=== PATIENT | male | born 1985 | race Caucasian/White ===

== ENCOUNTER 2018-08-07 07:52 | Emergency (ER) | payer SELFPAY ==
--- NOTE | 2018-08-07 08:04 | EDPHY ---
H & P Stated Complaint: l sided abd pain/nausea Time Seen by Provider: 08/07/18 08:03 HPI/ROS: CHIEF COMPLAINT: Abdominal pain, nausea HISTORY OF PRESENT ILLNESS: The patient presents to the ED with abrupt onset left mid abdominal pain and back pain that began earlier this morning. The patient reports that he cannot get comfortable. The patient reports associated nausea. The patient denies prior history of kidney stones. The patient does have a prior history of appendectomy and hernia repair. The patient denies any hematuria, dysuria, hematemesis or melena. REVIEW OF SYSTEMS: A comprehensive 10 point review of systems is otherwise negative aside from elements mentioned in the history of present illness. Source: Patient - Personal History Current Tetanus/Diphtheria Vaccine: No - Medical/Surgical History Hx Asthma: No Hx Chronic Respiratory Disease: No Hx Diabetes: No Hx Cardiac Disease: No Hx Renal Disease: No Hx Cirrhosis: No Hx Alcoholism: No Hx HIV/AIDS: No Hx Splenectomy or Spleen Trauma: No Other PMH: abd hernia/appy - Social History Smoking Status: Never smoked - Physical Exam Exam: General Appearance: Alert, mild discomfort Eyes: Pupils equal and round no pallor or injection ENT, Mouth: Mucous membranes moist Respiratory: There are no retractions, lungs are clear to auscultation, tenderness to lower chest wall Cardiovascular: Regular rate and rhythm Gastrointestinal: Tenderness to palpation in the left mid abdomen. Mild left CVA tenderness Neurological: 5/5 strength all 4 extremities Skin: Warm and dry, no rashes, specifically no evidence of zoster Musculoskeletal: Neck is supple nontender Extremities: symmetrical, full range of motion Psychiatric: Patient is oriented X 3, there is no agitation Constitutional: Initial Vital Signs Temperature (C) 36.6 C 08/07/18 07:55 Heart Rate 94 08/07/18 07:55 Respiratory Rate 18 08/07/18 07:55 Blood Pressure 144/107 H 08/07/18 07:55 O2 Sat (%) 92 08/07/18 07:55 O2 Delivery Mode Room Air Allergies/Adverse Reactions: No Known Allergies Allergy (Unverified 08/07/18 07:55) Home Medications: Medication Instructions Recorded NK [No Known Home Meds] 08/07/18 Medical Decision Making - Diagnostics Imaging Results: Imaging Impressions Abdomen/Pelvis CT 08/07/18 08:12 Impression: 1. No renal or ureteral calculi. 2. There is a fat-containing ventral hernia measuring 6.4 cm with possible mild subjacent omental inflammation. 3. Pulmonary nodules measuring up to 7.8 mm in the left lower lobe. Would consider chest CT in 6 months. ED Course/Re-evaluation: The patient presents to the ED with upper abdominal pain and mild rib tenderness. The patient's exam was concerning for the possibility of renal colic. He was taken for noncontrast CT scan which demonstrated no evidence of obvious nephrolithiasis, ureterolithiasis or other intra-abdominal pathology. Patient does have a chronic ventral hernia which has been repaired with mesh. The patient did receive 30 mg of IM Toradol as I believe his diagnosis is likely costochondritis in the setting of his negative CT scan. Re-evaluated the patient at 10:00 a.m.. He is currently feeling better. His chest wall tenderness has improved. At this point time I do feel the patient can be discharged home with customary aftercare instructions and return precautions. Differential Diagnosis: Differential diagnosis considered includes costochondritis, peptic ulcer disease , pyelonephritis, renal colic - Data Points Laboratory Results: 08/07/18 09:10 Urine Color YELLOW Urine Appearance CLEAR Urine pH 5.0 (5.0-7.5) Ur Specific [place] 1.024 (1.002-1.030) Urine Protein NEGATIVE (NEGATIVE) Urine Ketones NEGATIVE (NEGATIVE) Urine Blood 1+ H (NEGATIVE) Urine Nitrate NEGATIVE (NEGATIVE) Urine Bilirubin NEGATIVE (NEGATIVE) Urine Urobilinogen NEGATIVE EU EU (0.2-1.0) Ur Leukocyte Esterase NEGATIVE (NEGATIVE) Urine RBC 1-3 /hpf /hpf (0-3) Urine WBC 1-3 /hpf /hpf (0-3) Ur Epithelial Cells TRACE /lpf /lpf (NONE-1+) Urine Mucus TRACE /lpf /lpf (NONE-1+) Urine Sperm PRESENT /hpf /hpf (NONE SEEN) Urine Glucose NEGATIVE (NEGATIVE) Medications Given: Discontinued Medications Ketorolac Tromethamine (Toradol) 30 mg IM EDNOW ONE Stop: 08/07/18 09:29 Last Admin: 08/07/18 09:40 Dose: 30 mg Departure - Departure Disposition: Home, Routine, Self-Care Clinical Impression: Costochondritis, acute Condition: Good Instructions: Costochondritis (ED) Additional Instructions: 1. Take Ibuprofen or Motrin 600 mg by mouth three times a day. 2. Please return to the ED for markedly worsening symptoms or other concerns. Referrals: NONE *PRIMARY CARE P,. [Primary Care Provider] - As per Instructions
[2018-08-07] MEDS ORDERED: KETOROLAC 30 MG/1 ML SDV IM ONE (09:28)
[2018-08-07 09:42] VITALS: BP 142/87
== END 2018-08-07 10:28 | disposition home or self-care (01) ==
DX: M94.0 Chondrocostal junction syndrome [Tietze] (principal)
CPT/HCPCS: J1885